=== PATIENT | female | born 1950 | race Caucasian/White ===

== ENCOUNTER 2021-09-28 09:37 | Inpatient (IN) | payer SELFPAY ==
[~2021-09-28] VITALS: Ht 157.5 cm; Wt 75.5 kg
[2021-09-28 09:44] VITALS: BP_SYST 137
--- NOTE | 2021-09-28 10:00 | NUR ---
Placed in room 6 . Placed on monitoring analyst, blood pressure machine and pulse oximeter. To gown for exam. Side rails up. Report given to joão.
--- NOTE | 2021-09-28 10:02 | NUR ---
DR. CERVANTES AT BEDSIDE TO ASSESS PT. PT HAS C/O MULTIPLE RECENT FALLS WITHOUT HEAD INJURY, HIGH BS IN THE 200. PT HAS DX OF DM2, PAST CVA, HTN. PT IS AAO4, RESP E/U. ON RA. NO COUGH OR SOB NOTED. ABDOMEN SOFT, NONTENDER, NONDISTENDED, C/O NAUSEA, NO VOMITING, DENIES CONSTIPATION AND DIARRHEA. SKIN WARM, CDI, DISTAL PULSES NORMAL, NO EDEMA. SIDERAILS UP X2.
[2021-09-28] MEDS ORDERED: NACL 0.9% 1,000 ML IV ONE (10:15)
[2021-09-28] MEDS ORDERED: ONDANSETRON HCL 4 MG/2 ML VIAL IVP ONE (10:15)
[2021-09-28 10:40] LABS: BASOPHILS # (AUTO) 0.1 K/uL (0.0-0.2); BASOPHILS % (AUTO) 1.2 % (0.0-2.0); EOSINOPHILS # (AUTO) 0.1 K/uL (0.0-0.4); EOSINOPHILS % (AUTO) 3.2 % (0.0-4.0); HEMATOCRIT 35.3 % (36-48); HEMOGLOBIN 12.1 g/dL (12.0-16.0); LYMPHOCYTES # (AUTO) 1.7 K/uL (1.0-5.5); LYMPHOCYTES % (AUTO) 37.8 % (20.5-51.5); MEAN CORPUSCULAR HEMOGLOBIN 30 pg (27-31); MEAN CORPUSCULAR HGB CONC 34 % (32-36); MEAN CORPUSCULAR VOLUME 88 fL (79.0-98.0); MONOCYTES # (AUTO) 0.3 K/uL (0.0-1.0); NEUTROPHILS # (AUTO) 2.3 K/uL (1.8-7.7); NEUTROPHILS % (AUTO) 51.8 % (40.0-70.0); PLATELET COUNT (AUTO) 208 K/uL (130-430); RED BLOOD CELL COUNT(AUTO) 4.02 MIL/uL (4.2-6.2); RED CELL DISTRIBUTION WIDTH 15.2 % (9.0-15.0); WHITE BLOOD COUNT (AUTO) 4.4 K/uL (4.8-10.8)
--- NOTE | 2021-09-28 10:40 | NUR ---
CT SCAN COMPLETED.
[2021-09-28 10:47] LABS: ANION GAP 5 (5-15); CALCIUM 8.9 mg/dL (8.4-11.0); CHLORIDE 101 mmol/L (98-107); CREATININE 0.75 mg/dL (0.55-1.30); GLUCOSE 237 mg/dL (70-99); POTASSIUM 4.5 mmol/L (3.5-5.1); SODIUM SERUM 135 mmol/L (136-145); UREA NITROGEN, BLOOD 19 mg/dL (8-21)
[2021-09-28 10:49] LABS: BILIRUBIN,URINE NEGATIVE (NEGATIVE); BLOOD, URINE NEGATIVE (NEGATIVE); CLARITY/URINE CLEAR (CLEAR); COLOR,URINE YELLOW (YELLOW); GLUCOSE,URINE TRACE (NEGATIVE); KETONES,URINE NEGATIVE (NEGATIVE); LEUKOCYTE ESTERASE ,URINE 1+ (NEGATIVE); NITRITE, URINE POSITIVE (NEGATIVE); PROTEIN URINE NEGATIVE (NEGATIVE); UROBILINOGEN,URINE 0.2 (0.2-1.0)
[2021-09-28 10:55] LABS: ALANINE AMINOTRANSFERASE 19 U/L (12-78); ALBUMIN 3.3 g/dL (3.4-4.8); ASPARTATE AMINOTRANSFERASE 14 U/L (10-37); LIPASE 74 U/L (73-393); TOTAL BILIRUBIN 0.2 mg/dL (0.0-1.0)
[2021-09-28 11:04] LABS: RBC,URINE 0-3 /HPF (0-3)
[2021-09-28 11:05] LABS: BACTERIA,URINE FEW /HPF (None Seen); MUCUS,URINE 1+ /LPF (None Seen)
[2021-09-28] MEDS ORDERED: MECLIZINE HCL 25 MG TABLET (ANITVERT) PO ONE (11:15)
[2021-09-28] MEDS ORDERED: CEPHALEXIN 125 MG/5 ML, 100 ML BTL PO ONE (11:15)
--- NOTE | 2021-09-28 11:37 | NUR ---
DR. CERVANTES AT BEDSIDE, INFORMED PT OF POC AND THAT PT WILL BE ADMITTED UNDER DR. BLANCO. PT AND PT'S DAUGHTER AGREED WITH POC.
[2021-09-28] MEDS ORDERED: cephALEXin 500 MG CAPSULE PO ONE (11:45)
[2021-09-28] MEDS ORDERED: ASPIRIN 325 MG TABLET PO ONE (11:45)
--- NOTE | 2021-09-28 12:01 | NUR ---
Admit bed requested Patient will be admitted to care of . Admitted to TELEMETRY unit. Diagnosis: DIZZINESS Inpatient (Yes or No): NO Observation (Yes or No): NO Orientation concerns or request close to nursing station (Yes or No): NO Covid Status: PENDING On vent or bipap: NO Isolation requirements: SHO PENDING Needs a sitter: NO From Home (Yes or if No enter name of facility): YES Requires Dialysis (Yes or No): NO Med Rec Completed (Yes of No): YES Addendum: 09/28/21 at 1205 by [email or web address] MED NOT RECONCILED, PT'S DAUGHTER STATED SHE WILL GO HOME TO GET INFORMATION AND BRING IT BACK TO THE HOSPITAL.
[2021-09-28] MEDS ORDERED: DEXTROSE 50% JECT 50 ML DISP.SYRIN IVP PRN (12:45)
[2021-09-28] MEDS ORDERED: cloNIDine HCL 0.1 MG TABLET PO PRN (12:45)
[2021-09-28] MEDS ORDERED: cefTRIAXone 1 GM in D5W 50 ML IV ONE (14:30)
--- NOTE | 2021-09-28 15:00 | NUR ---
Patient will be admitted to care of ILIANA. Admitted to TELEMETRY unit. Will go to room 128. Belongings list completed. Complete and up to date summary report printed. SBAR report to be given at bedside with opportunity for questions.
[2021-09-28 15:07] VITALS: BP_SYST 150
--- NOTE | 2021-09-28 15:21 | NUR ---
CONSULT CARDIOLOGY DIZZINESS DR SALDANA [phone] S/W SUNDAY EXCHANGE
--- NOTE | 2021-09-28 15:22 | NUR ---
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
[2021-09-28 16:00] VITALS: BP_SYST 150
[2021-09-28] MEDS: metFORMIN HCL 500 MG TABLET PO SCH (17:59)
[2021-09-28 19:00] VITALS: BP_SYST 114
[2021-09-28] MEDS ORDERED: ACETAMINOPHEN 325 MG TABLET PO PRN (19:00)
--- NOTE | 2021-09-28 19:15 | NUR ---
change of shift.pt.presents vertigo,multiple falls;home,r/o cva.language barrier extant;[email or web address]. presents chest pain,headache.to f/u.day shift nsg;rhona martel. ordered tylenol;chest pain.pt.assisted w ambulation.pt.capable to reposition self.general status stable.respiratory status stable;unlabored@room air.call light/telephone w/in access of the pt.
[2021-09-28 20:00] VITALS: BP_SYST 114
--- NOTE | 2021-09-28 20:00 | NUR ---
pt.assessed.v/s assessed values wnl.i have administered tylenol:650mg.pt.had c/o headache.pt.stated chest pain has diminished.pt.apprised that snacks/beverages are available w/in the shift.no requests posited@this hour.pt.capable to reposition self.famil;dtr to stay w pt.
--- NOTE | 2021-09-28 20:30 | NUR ---
blood glucose assessed value;200mg/dl.
[2021-09-28] MEDS: MECLIZINE HCL 25 MG TABLET (ANITVERT) PO SCH (20:38)
[2021-09-28] MEDS: INSULIN REGULAR, HUMAN 100 UNITS/ML, 10 ML VIAL (humuLIN R) SUBCUT PRN (20:43)
--- NOTE | 2021-09-28 21:00 | NUR ---
2100p medications administered.pt.capable to ingest the po medications w/out difficulty.insulin;regular:2u administered. per sliding scale.no requests posited@this hour.call light/telephone w/in access of the pt.
[2021-09-28] MEDS ORDERED: NITROGLYCERIN 0.4 MG TAB.SUBL SL PRN (21:30)
--- NOTE | 2021-09-28 22:00 | NUR ---
pt.assessed.pt.quiescent,somnolent.per flacc pain mgx pt.absent facial grimaces/body posturing.pt.capable to reposition self. call light/telephone w/in access of the pt.
[2021-09-29] VITALS: BP_SYST 112
--- NOTE | 2021-09-29 | NUR ---
pt.assessed.v/s assessed values wnl.no c/o pain,nausea.no c/o dizziness present.no requests posited@[email or web address] hour.pt.capable to reposition self.call light/telephone w/in access of the pt.
--- NOTE | 2021-09-29 02:00 | NUR ---
pt.assessed.pt.quiescent.somnolent.per flacc pain mgx pt.absent facial grimaces/body posturing.pt.capable to reposition self.call light/telephone w/in access of the pt.
--- NOTE | 2021-09-29 04:00 | NUR ---
pt.assessed.pt.quiescent;somnolent.per flacc pain mgx pt.absent facial grimaces/body posturing.pt.capable to reposition self. call light/telephone w/in access of the pt.
[2021-09-29] MEDS: INSULIN REGULAR, HUMAN 100 UNITS/ML, 10 ML VIAL (humuLIN R) SUBCUT PRN ×2 (05:39→12:20)
--- NOTE | 2021-09-29 06:10 | NUR ---
pt.assessed.no c/o pain,nausea.pt.assisted to the restroom.gait assessed,unsteady.pt.assisted return to bed. pt.repositioned.blood glucose assessed value;165mg/dl.insulin;regular;2-u administered per sliding scale. pt.to submit to mri;brain in am.i have attended to the questionnaire.witnessed pt.signature.call light/telephone w/in access of the pt.
[2021-09-29 07:28] LABS: BASOPHILS # (AUTO) 0.1 K/uL (0.0-0.2); BASOPHILS % (AUTO) 1.3 % (0.0-2.0); EOSINOPHILS # (AUTO) 0.2 K/uL (0.0-0.4); EOSINOPHILS % (AUTO) 4.5 % (0.0-4.0); HEMATOCRIT 35.1 % (36-48); LYMPHOCYTES # (AUTO) 1.5 K/uL (1.0-5.5); LYMPHOCYTES % (AUTO) 37.6 % (20.5-51.5); MEAN CORPUSCULAR HEMOGLOBIN 30 pg (27-31); MEAN CORPUSCULAR HGB CONC 34 % (32-36); MEAN CORPUSCULAR VOLUME 88 fL (79.0-98.0); MONOCYTES # (AUTO) 0.3 K/uL (0.0-1.0); MONOCYTES % (AUTO) 6.4 % (1.7-9.3); NEUTROPHILS % (AUTO) 50.2 % (40.0-70.0); PLATELET COUNT (AUTO) 196 K/uL (130-430); RED CELL DISTRIBUTION WIDTH 14.9 % (9.0-15.0)
[2021-09-29 08:08] VITALS: BP_SYST 138
[2021-09-29] MEDS: metFORMIN HCL 500 MG TABLET PO SCH ×2 (09:06→17:08)
[2021-09-29] MEDS: ATORVASTATIN 20 MG TABLET PO SCH (09:07)
[2021-09-29] MEDS: MECLIZINE HCL 25 MG TABLET (ANITVERT) PO SCH ×3 (09:07→20:25)
[2021-09-29] MEDS: ASPIRIN 81 MG TAB.CHEW PO SCH (09:08)
[2021-09-29 09:53] LABS: ALANINE AMINOTRANSFERASE 15 U/L (12-78); ALBUMIN 2.9 g/dL (3.4-4.8); ANION GAP 5 (5-15); ASPARTATE AMINOTRANSFERASE 24 U/L (10-37); CALCIUM 8.4 mg/dL (8.4-11.0); CHLORIDE 107 mmol/L (98-107); CREATININE 0.68 mg/dL (0.55-1.30); GLUCOSE 85 mg/dL (70-99); POTASSIUM 4.3 mmol/L (3.5-5.1); SODIUM SERUM 139 mmol/L (136-145); THYROID STIMULATING HORMONE 5.39 uIu/mL (0.36-3.74); TOTAL BILIRUBIN 0.1 mg/dL (0.0-1.0); UREA NITROGEN, BLOOD 12 mg/dL (8-21)
[2021-09-29 10:36] LABS: CHOLESTEROL 237 mg/dL (<200); HDL CHOLESTEROL 52 mg/dL (>55); LDL CHOLESTEROL 150 mg/dL (<100); TRIGLYCERIDES 214 mg/dL (30-150)
[2021-09-29] MEDS: cefTRIAXone 1 GM in D5W 50 ML IV SCH (14:49)
--- NOTE | 2021-09-29 17:16 | NUR ---
rn notes patient remains on room air, nos ob noted. BS in the 160's range. Last check was 145, normal, no coverage needed. Patient did MRi of the brain, pending results. Plan is to have PO abx when dc'd. Pending dc order.
--- NOTE | 2021-09-29 19:15 | NUR ---
OPENING NOTES Patient resting in bed - no s/s pain or distress noted. respirations even and unlabored - head of bed elevated. IV site patent - no s/s redness, infection, or infiltration. Bed locked and in lowest position. Call light within reach - bed alarm on. Family at beside.
--- NOTE | 2021-09-29 19:17 | NUR ---
RECEIVED CRITICAL LAB FROM RADIOLOGY AT THIS TIME, ENDORSED BY [facility] Radiology, at this time, calls mid change of shift report to inform dayshift nurse of critical Brain MRI report. Paging at this time.
[2021-09-29 20:00] VITALS: BP_SYST 113
--- NOTE | 2021-09-29 21:38 | NUR ---
UNABLE TO REACH Dr. BLANCO Paged Dr. Freire instead regarding MRI results No new orders.
[2021-09-30] VITALS: BP_SYST 141
[2021-09-30] MEDS: INSULIN REGULAR, HUMAN 100 UNITS/ML, 10 ML VIAL (humuLIN R) SUBCUT PRN ×2 (06:20→22:09)
[2021-09-30 06:57] LABS: BASOPHILS % (AUTO) 0.8 % (0.0-2.0); EOSINOPHILS # (AUTO) 0.1 K/uL (0.0-0.4); HEMATOCRIT 34.5 % (36-48); HEMOGLOBIN 11.9 g/dL (12.0-16.0); LYMPHOCYTES # (AUTO) 1.6 K/uL (1.0-5.5); LYMPHOCYTES % (AUTO) 32.8 % (20.5-51.5); MEAN CORPUSCULAR HEMOGLOBIN 30 pg (27-31); MEAN CORPUSCULAR HGB CONC 35 % (32-36); MEAN CORPUSCULAR VOLUME 88 fL (79.0-98.0); MONOCYTES # (AUTO) 0.3 K/uL (0.0-1.0); MONOCYTES % (AUTO) 6.5 % (1.7-9.3); NEUTROPHILS # (AUTO) 2.8 K/uL (1.8-7.7); NEUTROPHILS % (AUTO) 56.9 % (40.0-70.0); PLATELET COUNT (AUTO) 211 K/uL (130-430); RED BLOOD CELL COUNT(AUTO) 3.93 MIL/uL (4.2-6.2); RED CELL DISTRIBUTION WIDTH 15.1 % (9.0-15.0); WHITE BLOOD COUNT (AUTO) 4.9 K/uL (4.8-10.8)
[2021-09-30 07:18] LABS: ANION GAP 6 (5-15); CALCIUM 8.8 mg/dL (8.4-11.0); CHLORIDE 103 mmol/L (98-107); GLUCOSE 173 mg/dL (70-99); SODIUM SERUM 137 mmol/L (136-145); UREA NITROGEN, BLOOD 13 mg/dL (8-21)
[2021-09-30 08:00] VITALS: BP_SYST 133
[2021-09-30] MEDS: ATORVASTATIN 20 MG TABLET PO SCH (08:39)
[2021-09-30] MEDS: metFORMIN HCL 500 MG TABLET PO SCH ×2 (08:40→17:26)
[2021-09-30] MEDS: MECLIZINE HCL 25 MG TABLET (ANITVERT) PO SCH ×3 (08:40→21:37)
[2021-09-30] MEDS: ASPIRIN 81 MG TAB.CHEW PO SCH (08:40)
[2021-09-30] MEDS ORDERED: GADOTERATE MEGLUMINE 7.5 MMOL/15 ML VIAL IV ONE (12:25)
[2021-09-30 12:36] VITALS: BP_SYST 130
[2021-09-30 16:04] VITALS: BP_SYST 138
[2021-09-30] MEDS: cefTRIAXone 1 GM in D5W 50 ML IV SCH (17:27)
[2021-09-30 20:37] VITALS: BP_SYST 136
[2021-09-30 20:39] VITALS: BP_SYST 136
--- NOTE | 2021-10-01 03:38 | NUR ---
Recieved report from AM nurse. Pt is aox4, ambulatory. to be discharged. 1844 UA resulted in ecoli and MDRO in Urine. MD Hamm notifed, consult Rohan placed on case. Pt to remain in hospital until bacteria is resolved. Patient resting in bed - no s/s pain or distress noted. respirations even and unlabored - head of bed elevated. IV site patent - no s/s redness, infection, or infiltration. Bed locked and in lowest position. Call light within reach - bed alarm on.
--- NOTE | 2021-10-01 04:53 | NUR ---
CONSULT: CONSULT CALLED FOR DR. ARORA I SPOKE TO ALEX ZIEGLER REASON FOR CONSULT: MDRO IN URINE REQUESTING CONSULT: DR. BLANCO PHILOSOPHY FACULTY PHONE NUMBER: [phone]
--- NOTE | 2021-10-01 07:29 | NUR ---
Opening Note: Report rcvd from outgoing NOC RN, all cares assumed.
--- NOTE | 2021-10-01 07:57 | NUR ---
Dr. Chinchilla making rounds, bedside report given. MD to review chart.
[2021-10-01 08:00] VITALS: BP_SYST 131
[2021-10-01] MEDS: ASPIRIN 81 MG TAB.CHEW PO SCH (08:04)
[2021-10-01] MEDS: MECLIZINE HCL 25 MG TABLET (ANITVERT) PO SCH ×2 (08:04→14:15)
[2021-10-01] MEDS: ATORVASTATIN 20 MG TABLET PO SCH (08:04)
[2021-10-01] MEDS: metFORMIN HCL 500 MG TABLET PO SCH (08:05)
[2021-10-01] MEDS ORDERED: metFORMIN HCL 500 MG TABLET ONE (08:09)
--- NOTE | 2021-10-01 08:30 | NUR ---
100% Breakfast PO consumed
--- NOTE | 2021-10-01 09:00 | NUR ---
[employer] products given to patient at bedside, patient has verbalized understanding on proper use.
--- NOTE | 2021-10-01 10:02 | NUR ---
Daughter at bedside, all questions answered.
[2021-10-01] MEDS: INSULIN REGULAR, HUMAN 100 UNITS/ML, 10 ML VIAL (humuLIN R) SUBCUT PRN (11:30)
[2021-10-01 12:00] VITALS: BP_SYST 129
--- NOTE | 2021-10-01 12:00 | NUR ---
Lunch tray given to patient
--- NOTE | 2021-10-01 14:00 | NUR ---
Family at bedside all questions answered.
[2021-10-01] MEDS: cefTRIAXone 1 GM in D5W 50 ML IV SCH (15:20)
[2021-10-01] MEDS ORDERED: MECL-160 PO (16:27)
[2021-10-01] MEDS ORDERED: NITR-85 PO (16:27)
--- NOTE | 2021-10-01 16:30 | NUR ---
MD at bedside discussing plan of care, patient and family have verbalized understanding.
[2021-10-01 16:32] VITALS: BP_SYST 120
== END 2021-10-01 17:05 | disposition home or self-care (01) | DRG 637 ==
LOC: EDBD 09:37 → SED 09:37 → STU 11:46
PROVIDERS: ADMIT Internal Medicine; ATTEND Internal Medicine
DX: E11.65 Type 2 diabetes mellitus with hyperglycemia (principal); G93.41 Metabolic encephalopathy; N39.0 Urinary tract infection, site not specified; Z16.24 Resistance to multiple antibiotics; I10 Essential (primary) hypertension; B96.20 Unspecified Escherichia coli [E. coli] as the cause of diseases classified elsewhere; D35.2 Benign neoplasm of pituitary gland; E78.5 Hyperlipidemia, unspecified; F41.9 Anxiety disorder, unspecified; Z20.822 Contact with and (suspected) exposure to COVID-19; Z86.73 Personal history of transient ischemic attack (TIA), and cerebral infarction without residual deficits; Z90.710 Acquired absence of both cervix and uterus
CPT/HCPCS: 36415; 36600; 70450-TC; 70551; 70553; 71045; 76376; 80048; 80053; 80061; 81000; 82803-TC; 82962; 83036; 83605; 83690; 83735; 83880; 84443; 84484; 85025; 87040; 87086; 93005; 93880; 96374; 99285; A9575; G0378; J0696; J1815; J1956; J2405; J7060; J8597